=== PATIENT | male | born 1965 | race Caucasian/White ===

== ENCOUNTER 2017-10-27 23:01 | Inpatient (IN) | payer OTHER ==
[~2017-10-27] VITALS: Ht 170.2 cm; Wt 74.8 kg
[2017-10-27 23:33] VITALS: BP 167/79
--- NOTE | 2017-10-27 23:42 | NUR ---
PT TAKEN TO BED 11.
[2017-10-28 00:02] LABS: HEMATOCRIT 41.5 % (36-52); HEMOGLOBIN 13.6 g/dL (12.0-18.0); MEAN CORPUSCULAR HEMOGLOBIN 30 pg (27-31); MEAN CORPUSCULAR HGB CONC 33 g/dL (33-37); MEAN CORPUSCULAR VOLUME 92 fL (80-94); PLATELET COUNT (AUTO) 232 K/uL (140-450); RED CELL DISTRIBUTION WIDTH 12.6 % (11.6-13.7); WHITE BLOOD COUNT (AUTO) 12.6 K/uL (4.8-10.8)
--- NOTE | 2017-10-28 00:10 | NUR ---
51Y/F PRESENTS TO ER C/O PAIN TO ABD. PMH DM, HTN. ALLERGY TO PENICILLINS. PT STATES HE HAS HAD UPPER ABD PAIN X8 DAYS THAT GETS WORSE WHEN HE EATS. PT DENIES N/V/D, UTI SYMPTOMS, CP, SOB. PT STATES PAIN IS 8/10 AND RADIATES TO MIDDLE OF BACK. ABD IS ROUND, SOFT, TENDER TO UPPER ABD, ACTIVE BS X4. PT IN BED, ER MD AWARE OF PT STATUS.
[2017-10-28 00:12] LABS: ANION GAP 13.9 (8-16); CARBON DIOXIDE 26.8 mmol/L (21-32); CREATININE 1.1 mg/dL (0.7-1.3); POTASSIUM 3.7 mmol/L (3.5-5.1)
[2017-10-28] MEDS ORDERED: DICYCLOMINE HCL LIQUID 20 MG, ALUMINUM HYD/MAG/SIMETHICONE 30 ML, LIDOCAINE VISCOUS 2% ... PO ONE ×3 (00:15)
[2017-10-28 00:18] LABS: ALBUMIN 3.9 g/dL (3.4-5.0); TOTAL BILIRUBIN 0.3 mg/dL (0.0-1.0)
[2017-10-28 00:22] LABS: EOSINOPHILS % (MANUAL) 1 % (0-4); LYMPHOCYTES % (MANUAL) 25 % (20-46); MONOCYTES % (MANUAL) 10 % (5-12)
[2017-10-28] MEDS ORDERED: MORPHINE SULFATE 4 MG/ML SYR IVP ONE (01:15)
[2017-10-28] MEDS ORDERED: ONDANSETRON 4 MG/2 ML VIAL IVP ONE (01:15)
[2017-10-28] MEDS ORDERED: NACL 0.9% 1,000 ML IV ONE (01:15)
--- NOTE | 2017-10-28 01:20 | NUR ---
PT IN BED STILL HAS SAME PAIN, ER MD NOTIFIED, WILL FOLLOW OUT ORDERS.
--- NOTE | 2017-10-28 02:08 | NUR ---
Ultrasound at bedside.
[2017-10-28] MEDS ORDERED: ONDANSETRON 4 MG/2 ML VIAL IVP PRN (02:35)
[2017-10-28] MEDS ORDERED: ACETAMINOPHEN 325 MG TAB PO PRN (02:35)
[2017-10-28] MEDS ORDERED: MORPHINE SULFATE 4 MG/ML SYR IVP PRN (02:35)
[2017-10-28] MEDS ORDERED: ATOR20TA PO (02:40)
[2017-10-28] MEDS ORDERED: DEXTROSE 50% 50 ML SYR IVP PRN (02:40)
[2017-10-28] MEDS ORDERED: INSULIN LISPRO SLIDING SCALE 100 UNITS/ML VIAL SUBQ PRN (02:40)
[2017-10-28] MEDS ORDERED: ASPI81CT89 PO (02:41)
[2017-10-28] MEDS ORDERED: VAS2.5 PO (02:45)
[2017-10-28] MEDS ORDERED: GLIP5TER PO (02:47)
[2017-10-28] MEDS: NACL 0.9% 1,000 ML IV SCH ×3 (03:27→22:31)
[2017-10-28 03:30] VITALS: BP 145/86
[2017-10-28] MEDS: BLOOD GLUCOSE MONITORING 1 DEV DEV FS SCH ×7 (03:30→21:00)
--- NOTE | 2017-10-28 03:30 | NUR ---
Admitted from ER, with chief complaint of ABD PAIN X8 DAYS, DX PANCREATITIS. PT FAMILY AT BEDSIDE. PT ABLE TO UNDERSTAND AND SPEAK [place] AND [place]. 51 y/o, Male, Cooperative, AOX4, AMBULATORY, ABLE TO VERBALIZE NEEDS. PT C/O ABD PAIN, PT WAS MEDICATED IN ER, WILL MONITOR PAIN. PT DENIES NAUSEA. BOWEL SOUNDS ACTIVE AT ALL QUADRANTS. IV ACCESS ASYMPTOMATIC, PATENT AND INTACT, WILL ADMINISTER IVF ORDERED. DISCUSSED AND REVIEWED PLAN OF CARE WITH PT. PT VERBALIZED UNDERSTANDING. oriented to call light, bed, phone,television, bathroom, smoking policy, visiting hours, procedures, ID bracelet on. Belongings list checked. ALL NEEDS MET. SAFETY MEASURES ENSURED. CALL LIGHT WITHIN REACH. WILL CONTINUE TO MONITOR.
--- NOTE | 2017-10-28 03:50 | NUR ---
Patient will be admitted to care of DR HUA. Admited to MED SURG. Will go to room 105A. Belongings list completed. Report to JOCELYN.
[2017-10-28] MEDS ORDERED: PNEUMOCOCCAL VACCINE 23 MCG/0.5 ML VIAL IMVAC PRN (04:10)
[2017-10-28] MEDS: MORPHINE SULFATE 2 MG/ML SYR IVP PRN ×2 (06:31→15:34)
--- NOTE | 2017-10-28 06:31 | NUR ---
BLOOD GLUCOSE 146, NO INSULIN COVERAGE NEEDED. PT C/O ABD PAIN. SEE PAIN ASSESSMENT. ADMINISTERED MORPHINE 2MG IVP PRN ORDERED WITH EDUCATION. PT VERBALIZED UNDERSTANDING, TOLERATED WELL. ALL NEEDS MET. IVF INFUSING WELL. SAFETY MEASURES ENSURED. CALL LIGHT WITHIN REACH. WILL CONTINUE TO MONITOR.
--- NOTE | 2017-10-28 07:21 | NUR ---
ENDORSED PLAN OF CARE TO AM NURSE. CONDITION STABLE.
[2017-10-28 07:58] VITALS: BP 133/77
--- NOTE | 2017-10-28 08:25 | NUR ---
PATIENT HAS BEEN SCREENED AND CATEGORIZED MODERATE NUTRITION RISK. PATIENT WILL BE SEEN WITHIN 3-5 DAYS OF ADMISSION. 10/31/17 - 11/02/17 MARCIA STARR MBA, RD
[2017-10-28] MEDS: ENALAPRIL 2.5 MG TAB PO SCH (09:00)
[2017-10-28] MEDS: ASPIRIN 81 MG TAB.CHEW PO SCH (09:00)
[2017-10-28] MEDS: ENOXAPARIN 40 MG/0.4 ML SYR SUBQ SCH (09:01)
--- NOTE | 2017-10-28 11:15 | NUR ---
PATIENT AWAKE, ALERT. RESPIRATION EVEN, UNLABOR. NO DISTRESS NOTED. DENIED PAIN AT THIS TIME. FAMILY AT BEDSIDE. CALL LIGHT WITHIN REACH. WILL CONTINUE TO MONITOR
--- NOTE | 2017-10-28 13:11 | NUR ---
ENDORSEMENT GIVEN TO ALEXANDRO WALL. PATIENT IS STABLE AT THIS TIME
--- NOTE | 2017-10-28 13:15 | NUR ---
RECEIVED PATIENT REPORT FROM CARLTON WALL. PATIENT IS SLEEPING AND EASILY AWAKEN BY VOICE. PATIENT IS AAOX3 AND SHOWS NO S/S OF ACUTE DISTRESS ON ROOM AIR. PATIENT DENIES PAIN AT THIS TIME. SKIN INTACT. IV NOTED ON THE L FA WITH IVF'S INFUSING WELL. THE BED IS IN LOW POSITION WITH CALL LIGHT WITHIN REACH. PATIENT AND PATIENT'S WERE EXPLAINED POC FOR TODAY. WILL CONTINUE TO MONITOR.
--- NOTE | 2017-10-28 15:38 | NUR ---
PATIENT C/O 6/10 ABD PAIN. ADMINISTERED MORPHINE 2 MG IVP. WILL REASSESS PAIN IN 30 MIN.
[2017-10-28 16:00] VITALS: BP 121/69
--- NOTE | 2017-10-28 16:05 | NUR ---
PATIENT STATES TOLERABLE ABD PAIN AT 4/10. PATIENT HAS FAMILY AT BEDSIDE. ALL NEEDS MET AT THIS TIME. BED IN LOW POSITION WITH CALL LIGHT WITHIN REACH. WILL CONTINUE TO MONITOR.
--- NOTE | 2017-10-28 19:15 | NUR ---
GAVE PATIENT REPORT TO NIGHT NURSE. PATIENT ENDORSED IN STABLE CONDITION.
--- NOTE | 2017-10-28 19:18 | NUR ---
RECEIVED REPORT FROM DAY SHIFT NURSE. PT LYING IN BED TALKING TO HIS FAMILY AT BED SIDE. IV TO LEFT FA #18G WITH NS AT 100 ML/HR INFUSING WELL. PT C/O MILD HEADACHE. WILL GIVE PAIN MEDS. CALL LIGHT WITHIN REACH. WILL CONTINUE TO MONITOR.
--- NOTE | 2017-10-28 21:00 | NUR ---
BLOOD SUGAR CHECKED 140. NO INSULIN COVERAGE NEEDED.
[2017-10-29] VITALS: BP 134/71
--- NOTE | 2017-10-29 00:35 | NUR ---
PT SLEEPING. NO S/S OF DISTRESS. CALL LIGHT WITHIN REACH.
--- NOTE | 2017-10-29 03:40 | NUR ---
PT SLEEPING BUT WAKES EASILY. NO S/S OF PAIN OR DISCOMFORT. CALL LIGHT WITHIN REACH.
[2017-10-29] MEDS: BLOOD GLUCOSE MONITORING 1 DEV DEV FS SCH ×2 (06:39→12:22)
--- NOTE | 2017-10-29 07:05 | NUR ---
ENDORSED PT TO DAY SHIFT NURSE. PT IN STABLE CONDITION.
--- NOTE | 2017-10-29 07:05 | NUR ---
ASSUMED CONTINUITY OF CARE. NO SIGNS AND SYMPTOMS OF ACUTE DISTRESS NOTED. INITIAL ASSESSMENT DONE. KEEP COMFORTABLE ON BED. EXPLAINED DIAGNOSIS, PLAN OF CARE, PAIN MANAGEMENT TEACHING, USE OF CALL LIGHT/BED/TV/BATHROOM. VERBALIZED UNDERSTANDING. CALL LIGHT WITHIN REACH.
[2017-10-29 07:49] LABS: HEMATOCRIT 38.7 % (36-52); HEMOGLOBIN 12.8 g/dL (12.0-18.0); MEAN CORPUSCULAR HEMOGLOBIN 31 pg (27-31); MEAN CORPUSCULAR HGB CONC 33 g/dL (33-37); MEAN CORPUSCULAR VOLUME 93 fL (80-94); PLATELET COUNT (AUTO) 210 K/uL (140-450); RED BLOOD CELL COUNT(AUTO) 4.15 MIL/uL (4.20-6.10); RED CELL DISTRIBUTION WIDTH 12.8 % (11.6-13.7); WHITE BLOOD COUNT (AUTO) 7.7 K/uL (4.8-10.8)
[2017-10-29 08:00] VITALS: BP 151/92
[2017-10-29 08:07] LABS: ALBUMIN 3.2 g/dL (3.4-5.0); ANION GAP 10.6 (8-16); CARBON DIOXIDE 28.4 mmol/L (21-32); CREATININE 0.9 mg/dL (0.7-1.3); TOTAL BILIRUBIN 0.4 mg/dL (0.0-1.0)
--- NOTE | 2017-10-29 08:25 | NUR ---
DR. GRULLON CAME, REVIEWED PT. CHART, AND SEEN PT..
[2017-10-29] MEDS: ENALAPRIL 2.5 MG TAB PO SCH (08:34)
[2017-10-29] MEDS: ASPIRIN 81 MG TAB.CHEW PO SCH (08:34)
[2017-10-29] MEDS: ENOXAPARIN 40 MG/0.4 ML SYR SUBQ SCH (08:36)
[2017-10-29 09:23] LABS: EOSINOPHILS % (MANUAL) 5 % (0-4); LYMPHOCYTES % (MANUAL) 35 % (20-46); MONOCYTES % (MANUAL) 8 % (5-12)
--- NOTE | 2017-10-29 10:50 | NUR ---
WENT TO BATHROOM WITHOUT ASSISTANCE. TOLERATED WELL. NO C/O PAIN.
[2017-10-29] MEDS ORDERED: ONDA4TAB PO (10:53)
[2017-10-29] MEDS ORDERED: ACET-2619 PO (10:54)
[2017-10-29] MEDS ORDERED: ACET-2869 PO (10:55)
[2017-10-29] MEDS ORDERED: DOCU-299 PO (10:57)
--- NOTE | 2017-10-29 11:30 | NUR ---
EXPLAINED TO PT. AND PT. ABOUT MD D/C ORDER, D/C INSTRUCTIONS AND TEACHING, MD D/C PRESCRIPTIONS LIST EDUCATION, MD FOLLOW-UP, DISEASE MANAGEMENT TEACHING, DIET, PAIN MANAGEMENT TEACHING. VERBALIZED UNDERSTANDING.
[2017-10-29 12:00] VITALS: BP 125/70
--- NOTE | 2017-10-29 13:50 | NUR ---
D/C HOME ACCOMPANIED BY PT. . REFUSED TO USE WHEELCHAIR. HAD STEADY GAIT AND BALANCE. NO C/O PAIN. NO SOB, NOTED. IN STABLE CONDITION. INFORMED CHARGE NURSE THELMA ANAYA.
--- NOTE | 2017-10-30 15:04 | NUR ---
CM NOTE DISCHARGE SUMMARY FAXED TO [facility] (FAX# [phone]) AND [facility] (FAX# [phone])
== END 2017-10-29 13:50 | disposition home or self-care (01) | DRG 282 ==
LOC: MED 23:01 → MTU 10-28 02:31
PROVIDERS: ADMIT Hospitalist; ATTEND Hospitalist
PROC: 3E0234Z Introduction of Serum, Toxoid and Vaccine into Muscle, Percutaneous Approach (ICD-10-PCS; principal; 2017-10-29)
DX: K85.90 Acute pancreatitis without necrosis or infection, unspecified (principal); I10 Essential (primary) hypertension; E11.9 Type 2 diabetes mellitus without complications; F17.210 Nicotine dependence, cigarettes, uncomplicated; E78.00 Pure hypercholesterolemia, unspecified; Z79.84 Long term (current) use of oral hypoglycemic drugs; Z88.0 Allergy status to penicillin; Z79.82 Long term (current) use of aspirin; Z79.899 Other long term (current) drug therapy; Z23 Encounter for immunization
CPT/HCPCS: 36415; 76705; 80053; 82948; 83690; 85025; 87081; 90732; 96361; 96374; 96375; 99285; J1650; J2270; J2405; J7030; Q0092

== ENCOUNTER 2018-05-06 22:52 | Emergency (ER) | payer BC ==
[~2018-05-06] VITALS: Ht 170.2 cm; Wt 73.9 kg
[~2018-05-06 22:52] MED LIST: ACET-2619 PO; ACET-2869 PO; ASPI81CT89 PO; ATOR20TA PO; DOCU-299 PO; GLIP5TER PO; ONDA4TAB PO; VAS2.5 PO
[2018-05-06 22:54] VITALS: BP 197/90
[2018-05-06] MEDS ORDERED: KETOROLAC 60 MG/2 ML VIAL IM ONE (23:25)
--- NOTE | 2018-05-06 23:41 | NUR ---
PT C/O CHRONIC RT KNEE PAIN THAT HAS BEEN WORSENING FOR PAST WEEK. NO REDNESS, SWELLING, OR BRUISING NOTED TO SITE. +CMS. PMH DM, HIGH CHOLESTEROL
[2018-05-06 23:57] VITALS: BP 190/90
--- NOTE | 2018-05-06 23:57 | NUR ---
Patient discharged with v/s stable. Written and verbal after care instructions given and explained. Patient alert, oriented and verbalized understanding of instructions. Ambulatory with steady gait. All questions addressed prior to discharge. ID band removed. Patient advised to follow up with PMD. Rx of NORCO 5MG, MOTRIN 800MG given. Patient educated on indication of medication including possible reaction and side effects. Opportunity to ask questions provided and answered.
== END 2018-05-06 23:57 | disposition home or self-care (01) ==
LOC: MED 22:52
DX: S80.01XA Contusion of right knee, initial encounter (principal); E11.9 Type 2 diabetes mellitus without complications; I10 Essential (primary) hypertension; F17.210 Nicotine dependence, cigarettes, uncomplicated; Z79.84 Long term (current) use of oral hypoglycemic drugs; Z79.82 Long term (current) use of aspirin; Z79.899 Other long term (current) drug therapy; X58.XXXA Exposure to other specified factors, initial encounter; Y93.89 Activity, other specified; Y92.89 Other specified places as the place of occurrence of the external cause; Y99.8 Other external cause status
CPT/HCPCS: 96372; 99283; J1885

== ENCOUNTER 2018-05-10 02:00 | Emergency (ER) | payer BC ==
[~2018-05-10] VITALS: Ht 170.2 cm; Wt 73.1 kg
[2018-05-10 02:00] VITALS: BP 161/86
--- NOTE | 2018-05-10 02:00 | NUR ---
PATIENT AMBULATED TO ER BED 12.
--- NOTE | 2018-05-10 02:05 | NUR ---
PATIENT PRESENTS TO ED WITH pt came in to ER with c/o pain in the right knee. pt is . PT saw primary care today and recieved medication, toradol and naproxin. pt had no relief from medication. daughter is at bedside. DENIES N/V/D; SKIN IS PINK/WARM/DRY; AAOX4 WITH EVEN AND STEADY GAIT; LUNGS CLEAR BL; HR EVEN AND REGULAR; PT DENIES ANY FEVER, CP, SOB, OR COUGH AT THIS TIME; PATIENT STATES PAIN OF 10/10 AT THIS TIME; VSS; PATIENT POSITIONED FOR COMFORT; HOB ELEVATED; BEDRAILS UP X2; BED DOWN. ER MD MADE AWARE OF PT STATUS.
--- NOTE | 2018-05-10 02:14 | NUR ---
Dr. Montgomery evaluating patient at bedside.
--- NOTE | 2018-05-10 02:35 | NUR ---
XRAY AT BEDSIDE FOR INTERVENTION.
[2018-05-10 03:10] VITALS: BP 161/86
--- NOTE | 2018-05-10 03:10 | NUR ---
Patient discharged with v/s stable. Written and verbal after care instructions given and explained. Patient alert, oriented and verbalized understanding of instructions. Ambulatory with steady gait. All questions addressed prior to discharge. ID band removed. Patient advised to follow up with PMD. Rx of medrol dosepak was given. Patient educated on indication of medication including possible reaction and side effects. Opportunity to ask questions provided and answered.
== END 2018-05-10 03:19 | disposition home or self-care (01) ==
LOC: MED 02:00
DX: M17.11 Unilateral primary osteoarthritis, right knee (principal); E11.9 Type 2 diabetes mellitus without complications; I10 Essential (primary) hypertension; Z79.899 Other long term (current) drug therapy; Z88.0 Allergy status to penicillin
CPT/HCPCS: 73562; 99284; Q0092

== ENCOUNTER 2020-08-24 13:39 | Emergency (ER) | payer BC, OTHER ==
[~2020-08-24] VITALS: Ht 170.2 cm; Wt 73.9 kg
[~2020-08-24 13:39] MED LIST changes: -ACET-2869 PO; +ASPI-1822 PO; -ASPI81CT89 PO; +HYDR-5122 PO
[2020-08-24 13:48] VITALS: BP 152/74
--- NOTE | 2020-08-24 14:00 | NUR ---
PT AMBULATED TO BED 7.
--- NOTE | 2020-08-24 14:10 | NUR ---
PT C/O SUDDEN ONSET RIGHT LATERAL LOWER FLANK PAIN X 3 DAYS, AND NU LOWER BACK PAIN X 3 MONS. DENIES N/V/D, FEVER, CHILLS, COUGH, HEMATURIA, URGENCY/FREQUENCY OF URINATION, OR DYSURIA. NO CVAT NU. ABDOMEN IS SOFT, FLAT, NON-TENDER ON ALL QUARDRANTS.
--- NOTE | 2020-08-24 14:34 | NUR ---
PT IS BEING TAKEN TO CT SCAN VIA .
--- NOTE | 2020-08-24 14:38 | NUR ---
PT IS BACK FROM CT SCAN VIA WC AND AMBULATES TO BATHROOM WITH STEADY GAIT.
[2020-08-24 14:58] LABS: APPEARANCE,URINE CLEAR (CLEAR); BILIRUBIN,URINE NEGATIVE (NEGATIVE); BLOOD, URINE TRACE-I (NEGATIVE); COLOR,URINE YELLOW (YELLOW); LEUKOCYTE ESTERASE ,URINE NEGATIVE (NEGATIVE); NITRITE, URINE NEGATIVE (NEGATIVE); PH,URINE 5.5 (5.0-9.0); UGLUCOSE 2+ (NEGATIVE)
[2020-08-24 15:01] LABS: BASOPHILS # (AUTO) 0.1 K/uL (0.00-0.22); BASOPHILS % (AUTO) 0.9 % (0.0-2.0); EOSINOPHILS # (AUTO) 0.5 K/uL (0-0.4); EOSINOPHILS % (AUTO) 5.4 % (0.0-4.0); HEMATOCRIT 42.1 % (36-52); HEMOGLOBIN 14.2 g/dL (12.0-18.0); LYMPHOCYTES # (AUTO) 2.2 K/uL (2.0-11.5); LYMPHOCYTES % (AUTO) 22.4 % (20.5-51.1); MEAN CORPUSCULAR HEMOGLOBIN 32 pg (27-31); MEAN CORPUSCULAR HGB CONC 34 g/dL (33-37); MEAN CORPUSCULAR VOLUME 93.7 fL (80-94); MONOCYTES # (AUTO) 0.9 K/uL (0.8-1.0); MONOCYTES % (AUTO) 9.4 % (1.7-9.3); NEUTROPHILS % (AUTO) 61.9 % (42.2-75.2); PLATELET COUNT (AUTO) 254 K/uL (140-450); RED BLOOD CELL COUNT(AUTO) 4.49 MIL/uL (4.20-6.10); RED CELL DISTRIBUTION WIDTH 13.5 % (11.6-13.7); WHITE BLOOD COUNT (AUTO) 9.6 K/uL (4.8-10.8)
[2020-08-24 15:13] LABS: ALBUMIN 4.1 g/dL (3.4-5.0); ANION GAP 13.3 (8-16); POTASSIUM 4.3 mmol/L (3.5-5.1); TOTAL BILIRUBIN 0.4 mg/dL (0.0-1.0)
[2020-08-24 15:29] VITALS: BP 130/78
== END 2020-08-24 15:29 | disposition home or self-care (01) ==
LOC: MED 13:39
DX: S39.011A Strain of muscle, fascia and tendon of abdomen, initial encounter (principal); E11.9 Type 2 diabetes mellitus without complications; I10 Essential (primary) hypertension; Z88.0 Allergy status to penicillin; Z79.899 Other long term (current) drug therapy; X58.XXXA Exposure to other specified factors, initial encounter; Y93.89 Activity, other specified; Y92.89 Other specified places as the place of occurrence of the external cause; Y99.8 Other external cause status
CPT/HCPCS: 36415; 80053; 81003; 85025; 99284

== ENCOUNTER 2021-11-03 21:11 | Emergency (ER) | payer BC, OTHER ==
[~2021-11-03] VITALS: Ht 170.2 cm; Wt 74.8 kg
[2021-11-03 21:35] VITALS: BP 141/83
--- NOTE | 2021-11-03 21:37 | NUR ---
TO LOBBY A/W BED AMBULATORY
--- NOTE | 2021-11-03 22:00 | NUR ---
SEEN AND EXAMINED BY PAUL
[2021-11-03 22:41] LABS: BASOPHILS # (AUTO) 0.1 K/uL (0.00-0.22); BASOPHILS % (AUTO) 0.9 % (0.0-2.0); EOSINOPHILS # (AUTO) 0.4 K/uL (0-0.4); EOSINOPHILS % (AUTO) 5.1 % (0.0-4.0); HEMATOCRIT 40.8 % (36-52); HEMOGLOBIN 14.1 g/dL (12.0-18.0); LYMPHOCYTES # (AUTO) 2.4 K/uL (2.0-11.5); LYMPHOCYTES % (AUTO) 29.2 % (20.5-51.1); MEAN CORPUSCULAR HEMOGLOBIN 32 pg (27-31); MEAN CORPUSCULAR HGB CONC 34 g/dL (33-37); MEAN CORPUSCULAR VOLUME 91.8 fL (80-94); MONOCYTES # (AUTO) 0.6 K/uL (0.8-1.0); MONOCYTES % (AUTO) 6.8 % (1.7-9.3); NEUTROPHILS # (AUTO) 4.8 K/uL (1.8-7.7); PLATELET COUNT (AUTO) 297 K/uL (140-450); RED BLOOD CELL COUNT(AUTO) 4.45 MIL/uL (4.20-6.10); RED CELL DISTRIBUTION WIDTH 13.4 % (11.6-13.7); WHITE BLOOD COUNT (AUTO) 8.3 K/uL (4.8-10.8)
[2021-11-03 23:11] LABS: ALBUMIN 4.1 g/dL (3.4-5.0); ANION GAP 14.9 (8-16); CARBON DIOXIDE 26.3 mmol/L (21-32); CREATININE 0.9 mg/dL (0.6-1.3); POTASSIUM 4.2 mmol/L (3.5-5.1); TOTAL BILIRUBIN 0.3 mg/dL (0.0-1.0)
[2021-11-04] MEDS ORDERED: IBUP-2213 PO (00:50)
[2021-11-04] MEDS ORDERED: OMEP40EC24 PO (00:50)
[2021-11-04] MEDS ORDERED: ACET-8386 PO (00:50)
[2021-11-04 00:53] VITALS: BP 128/79
--- NOTE | 2021-11-04 00:53 | NUR ---
Patient discharged with v/s stable. Written and verbal after care instructions given and explained. Patient alert, oriented and verbalized understanding of instructions. Ambulatory with steady gait. All questions addressed prior to discharge. ID band removed. Patient advised to follow up with PMD. Rx of IBUPROFEN, PRILOSEC, HYDROCODONE given. Patient educated on indication of medication including possible reaction and side effects. Opportunity to ask questions provided and answered.
== END 2021-11-04 00:53 | disposition home or self-care (01) ==
LOC: MED 21:11
DX: R10.13 Epigastric pain (principal); E11.9 Type 2 diabetes mellitus without complications; I10 Essential (primary) hypertension; Z88.0 Allergy status to penicillin
CPT/HCPCS: 36415; 80053; 83690; 85025; 99283